=== PATIENT | male | born 1955 | race African-American/Black ===

== ENCOUNTER 2017-07-26 01:03 | Emergency (ER) | payer SELFPAY, OTHER | END 2017-07-26 05:10 | disposition home or self-care (01) | LOC: FTE 01:03 | DX: S50.02XA Contusion of left elbow, initial encounter (principal); W19.XXXA Unspecified fall, initial encounter; Y92.89 Other specified places as the place of occurrence of the external cause | CPT/HCPCS: 73080; 73080-LT; 99283-25 ==